=== PATIENT | male | born 1985 | race African-American/Black ===

== ENCOUNTER 2017-09-20 10:11 | Emergency (ER) | payer OTHER ==
[~2017-09-20] VITALS: Ht 177.8 cm; Wt 88.0 kg
[2017-09-20] MEDS ORDERED: HYDROCODONE/ACETAMINOPHEN 5/325MG TABLET PO STA (10:25)
[2017-09-20 10:43] LABS: BASOPHILS % 0.6 % (0.0-2.0); EOSINOPHILS % 2.7 % (0.0-5.0); HEMATOCRIT. 42.7 % (42.0-52.0); HEMOGLOBIN. 15.2 g/dL (14.0-18.0); LYMPHOCYTES % 29.6 % (20.0-50.0); MEAN CORPUSCULAR VOLUME 93.1 fL (80.0-94.0); MEAN PLATELET VOLUME 7.9 fl (7.4-10.4); NEUTROPHILS % 53.1 % (40.0-76.0); PLATELET 274 x1000/uL (130-400); RED BLOOD CELL COUNT 4.59 mill/uL (4.7-6.1); RED CELL DISTRIBUTION WIDTH 12.8 % (11.6-14.6)
[2017-09-20 10:50] LABS: CHLORIDE 106 mEq/L (98-107)
[2017-09-20 12:16] LABS: CLARITY URINE CLEAR (CLEAR); COLOR URINE YELLOW (YELLOW); KETONES URINE NEGATIVE (NEGATIVE); LEUKOCYTE ESTERASE URINE NEGATIVE (NEGATIVE); NITRITE URINE NEGATIVE (NEGATIVE); OCCULT BLOOD URINE NEGATIVE (NEGATIVE); PROTEIN URINE NEGATIVE (NEGATIVE); SPECIFIC GRAVITY URINE 1.009 (1.005-1.030); UROBILINOGEN URINE 0.2 E.U./dL (0.2-1.0)
[2017-09-20] MEDS ORDERED: IBUPROFEN 800MG TABLET PO ONE (12:30)
[2017-09-20 13:00] VITALS: BP 128/77
== END 2017-09-20 14:22 | disposition home or self-care (01) ==
LOC: ER 10:11
DX: I31.9 Disease of pericardium, unspecified (principal); J18.9 Pneumonia, unspecified organism; R10.11 Right upper quadrant pain
CPT/HCPCS: 36415; 71045; 80053; 81003; 83690; 85025; 93005; 99285